=== PATIENT | female | born 1990 | race Caucasian/White ===

== ENCOUNTER 2017-03-31 11:12 | Emergency (ER) | payer OTHER ==
[~2017-03-31] VITALS: Ht 166.4 cm; Wt 79.5 kg
[~2017-03-31 11:12] MED LIST: DICY20TA33 PO; ONDA8TAB10 PO; OXYC1TAB24 PO
[2017-03-31 11:17] VITALS: BP 132/91; PULSE 94; RESP 15; O2SAT 100
[2017-03-31 13:21] VITALS: BP 120/83; PULSE 90; RESP 20; O2SAT 99
--- NOTE | 2017-03-31 13:35 | ED.REPORT ---
HPI-Abd Pain F Under 40 Date of Service March 31, 2017 ED Provider: Artur Razo PA-C Rose is otherwise healthy 27-year-old female presenting with a chief complaint of bilateral lower abdominal pain. Noted to be by urinalysis upon arrival to emergency department. Patient reports 3 days of sharp bilateral lower abdominal pain "in the area of my fallopian tubes, and a little bit less in the middle." Also complains of fatigue and loose stool. Denies fever, abdominal pain, vomiting, melena, hematochezia, vaginal bleeding/ discharge, hematuria, dysuria. History of lap band surgery, 2 vaginal deliveries. Admits history of IBS, benign liver tumor. Denies history of PID, ovarian cyst, ovarian torsion, Crohn's disease, ulcerative colitis. Nursing Notes Stated Complaint: LOWER ABDOMINAL PAIN/FATIGUE Chief Complaint: Female Abdominal Pain Nursing Notes Reviewed: Yes Allergies: Coded Allergies: TAPE (Verified Allergy, Unknown, 08/10/15) azithromycin (Verified Allergy, Unknown, 08/10/15) hydromorphone HCl (Verified Allergy, Unknown, 08/10/15) Scheduled PRN Dicyclomine (Bentyl) 20 Mg Tablet 20 MG PO QID PRN PRN For Pain Ondansetron ODT (Ondansetron ODT) 8 Mg Tab.rapdis 8 MG PO QID PRN PRN For Nausea oxyCODONE-Acetaminophen 5-325 mg (oxyCODONE-Acetaminophen 5-325 mg) 1 Each Tablet 1-2 TAB PO Q6H PRN PRN For Pain General Time Seen by MD: 13:18 Chief Complaint Abdominal pain Past Medical History Past Medical History Anxiety Possible IBS Past Surgical History Laproscopic surgery to rule-out endometriosis Colonoscopy 2011 Knee surgery Family History Grandmother at bedside and reports that she and patient's mother have similar symptoms Smoking History Former Smoker Social History Alcohol Use: Denies alcohol use Drug Use: Denies drug use Other Social History: Good social support Occupation lives by self with 7 and 3 year old, works at [employer] Ambulatory Status Independent Review of Systems Negative unless stated otherwise in history of present illness Physical Exam General: Well appearing, well developed, well nourished, no acute distress. Head: Atraumatic, normocephalic. Eyes: No scleral icterus or injection. No discharge. Vision grossly intact. ENT: Voice clear, hearing grossly intact. Respiratory: Regular rate and rhythm. Breath sounds present, clear to auscultation and equal bilaterally. No respiratory distress. No increased work of breathing, speaks in complete sentences. Cardiovascular: Regular rate and rhythm, without murmur, gallop or rub. No pedal edema. Gastrointestinal: Obese abdomen, moderately tender in bilateral lower quadrants and suprapubically, most pronounced in the left lower quadrant. Negative rebound. Bowel sounds normoactive. Skin: Warm and dry. Neurological: Grossly nonfocal. Psychological: Alert and oriented. Speech appropriate, linear and logical. Behavior appropriate. Initial Vital Signs Vital Signs (First) Date Time Temp Pulse Resp B/P Pulse Ox O2 Delivery O2 Flow Rate FiO2 03/31/17 11:17 36.6 94 15 132/91 100 Room Air Initial VS: Vital signs normal Interpretation & Diagnostics Lab Results Interpretation Result Diagram: 03/31/17 1410 03/31/17 1410 Test 03/31/17 11:28 03/31/17 14:10 Urine Color Yellow (YELLOW) Urine Appearance Turbid (CLEAR,HAZY) Urine pH 5.5 (5.0-8.0) Urine Specific [place] 1.025 (1.003-1.035) Urine Protein Negativemg/dL (NEG,TRACE) Urine Glucose (UA) Negativemg/dL (NEGATIVE) Urine Ketones 15mg/dL (NEGATIVE) Urine Occult Blood Negative (NEGATIVE) Urine Nitrite Negative (NEGATIVE) Urine Bilirubin Negative (NEGATIVE) Urine Urobilinogen Normalmg/dL (NORMAL) Urine Leukocyte Esterase Negative (NEGATIVE) Urine RBC 0-2/hpf (0-2) Urine WBC 0-5/hpf (0-5) Urine Epithelial Cells Few/hpf (NONE-MOD) Urine Crystals Amorphous urates (NONE Urine Bacteria None/hpf (NONE-FEW) Urine Hyaline Casts None/lpf (NONE) Urine Granular Casts None seen (NONE SEEN) Urine Waxy Casts None seen (NONE SEEN) Urine Red Blood Cell Casts None seen (NONE SEEN) Urine White Blood Cell Casts None seen (NONE SEEN) Urine Mucus None seen (None Seen) Urine Trichomonas None seen (NONE SEEN) Urine Yeast None (NONE SEEN) Urinalysis Comment None Urine Culture Reflexed Not indicated Hold Urine Received (Received) White Blood Count 9.8th/mm3 (3.8-10.1) Red Blood Count 4.63mil/mm3 (3.90-5.20) Hemoglobin 14.2g/dL (12.0-15.6) Hematocrit 39.0% (35.0-46.0) Mean Corpuscular Volume 84.2fL (81-100) Mean Corpuscular Hemoglobin 30.7pg (27.0-35.0) Mean Corpuscular Hemoglobin Concent 36.4% (32.0-37.0) Red Cell Distribution Width 12.7% (12.3-15.4) Platelet Count 335bil/L (150-400) Neutrophils (%) (Auto) 74.6% (40-74) Lymphocytes (%) (Auto) 19.2% (14-46) Monocytes (%) (Auto) 5.0% (4-12) Eosinophils (%) (Auto) 0.7% (0-5) Basophils (%) (Auto) 0.3% (0-3) Sodium Level 137mEq/L (134-144) Potassium Level 3.8mEq/L (3.5-5.2) Chloride Level 100mEq/L (97-108) Carbon Dioxide Level 20mmol/L (18-29) Blood Urea Nitrogen 10mg/dL (6-20) Creatinine 0.76mg/dL (0.57-1.00) Estimat Glomerular Filtration Rate 130mL/min (>59) Glucose Level 89mg/dL (60-99) Calcium Level 9.5mg/dL (8.5-10.1) Total Bilirubin 0.6mg/dL (0.0-1.2) Aspartate Amino Transf (AST/SGOT) 18U/L (0-50) Alanine Aminotransferase (ALT/SGPT) 27U/L (0-32) Alkaline Phosphatase 65U/L (25-150) Total Protein 7.5g/dL (6.4-8.4) Albumin 4.3g/dL (3.4-5.0) HCG Beta Subunit 3078mIU/mL Hold [place] Top Tube Received (Received) US Focused OB PROCEDURE: US OB<14 WKS+OB TRANSVAG INDICATIONS: , bilateral lower abdominal pain IMPRESSION: 1. Single early intrauterine gestation. Routine clinical and sonographic followup recommended. Small mat-gestational hemorrhage. 2. Increased right hepatic lobe focal nodular hyperplasia. Exam Performed by: Radiologist Re-Eval/Medical Decision Med Decision/Clinical Course Med Decision/Clinical Course: I discussed this case with Dr. Lucio Otherwise healthy 19-year-old female presents with bilateral lower abdominal pain. Denies vaginal bleeding/discharge, hematuria, dysuria, bowel changes. Physical examination reveals moderate lower abdominal tenderness, normal vital signs. See test is positive, CBC and CMP are normal, urinalysis is normal. Ultrasound reveals a single intrauterine , normal appearance of maternal organs. Patient reports a "benign liver tumor" which is noted on ultrasound. At this point I I am reassured regarding ectopic , PID, ovarian torsion, ovarian cyst. I discussed this case with Dr. Lucio and believe the patient is stable and safe to be discharged. Advise regarding over- the-counter analgesia, Provided OB follow-up referral, emergency return precautions. Patient verbalizes understanding of and consent to plan Discharge & Departure Primary Impression: Weeks of gestation: less than 8 weeks Qualified Code: Z3A.01 - Less than 8 weeks gestation of Disposition: Home Discharge Condition All VS Reviewed: Yes Condition: Stable Patient Instructions: (ED) Additional Instructions: Evaluation in the emergency department for abdominal pain involves history, physical examination ultrasound and blood tests. This indicates that you are , but is reassuring against an acute dangerous condition such as an ectopic or torsed ovary. I believe you are stable and safe to be discharged home. Pain is best managed with up to 1000 mg of acetaminophen (Tylenol) every 6 hours. You should avoid ibuprofen during the first and final trimesters of . I have given you a referral for an instructional design specialist. Please contact his office tomorrow to arrange follow-up. Return to the emergency department if any new or worsening symptoms including increasing pain, vaginal bleeding or discharge. Referrals: NOPCP (PCP) Lionel Mendoza MD EDSupervising Provider for APC: Donnell Lucio MD copies to: Lionel Mendoza MD, Seth PA-C March 31, 2017 13:35
[2017-03-31 14:23] LABS: BASOPHILS % (AUTO) 0.3 % (0-3); EOSINOPHILS % (AUTO) 0.7 % (0-5); Mean Corpuscular Hemoglobin 30.7 pg (27.0-35.0); Mean Corpuscular Volume 84.2 fL (81-100); NEUTROPHILS % (AUTO) 74.6 % (40-74); Platelet Count 335 bil/L (150-400)
[2017-03-31 14:46] LABS: APPEARANCE,URINE TURBID (CLEAR,HAZY); COLOR,URINE YELLOW (YELLOW); OCCULT BLOOD,URINE NEGATIVE (NEGATIVE); PH,URINE 5.5 (5.0-8.0); UROBILINOGEN,URINE NORMAL (NORMAL)
[2017-03-31 15:35] VITALS: BP 118/78; PULSE 76; RESP 20; O2SAT 99
--- NOTE | 2017-03-31 17:36 | DRSVH ---
PROCEDURE: US OB<14 WKS+OB TRANSVAG INDICATIONS: , bilateral lower abdominal pain TECHNIQUE: Real-time scanning was performed of the fetus and maternal pelvic organs, with image documentation. Endovaginal scanning was also performed to better visualize the fetus and maternal ovaries. COMPARISON: [facility], MR, ABD W&WO CON, 08/27/2016, 8:53. FINDINGS: Embryo: A single intrauterine gestation is present, with a mean gestational sac diameter of 6 mm, co rresponding to a 5 week 2 day gestation. A yolk sac is present. A small mat-gestational hemorrhage i s seen. Measurement variability in dating: +/- 4 weeks by LMP, +/- 7 days by mean sac diameter (use before 6 weeks gestation if crown-rump length not able to be measured), +/- 5 days by crown-rump length (6-12 weeks gestation). Maternal organs: Ovaries corpus luteal cyst within the right ovary. Left ovary within normal limits. Limited images through the kidneys demonstrate no hydronephrosis. 68 mm diameter right hepatic lob e mass is present, which is increased compared to 10.25.16, allowing for differences in modality. IMPRESSION: 1. Single early intrauterine gestation. Routine clinical and sonographic followup recommended. Small mat-gestational hemorrhage. 2. Increased right hepatic lobe focal nodular hyperplasia. Dictated by: Gloria Petersen M.D. on 03/31/2017 at 17:31 Approved by: Gloria Petersen M.D. on 03/31/2017 at 17:34
[2017-03-31 18:11] VITALS: BP 125/85; PULSE 96; RESP 16; O2SAT 100
== END 2017-03-31 18:11 | disposition home or self-care (01) ==
LOC: SED 11:12
DX: O26.891 Other specified pregnancy related conditions, first trimester (principal); R10.31 Right lower quadrant pain; R10.32 Left lower quadrant pain; R53.83 Other fatigue; R19.7 Diarrhea, unspecified; Z3A.01 Less than 8 weeks gestation of pregnancy; Z87.891 Personal history of nicotine dependence; Z88.1 Allergy status to other antibiotic agents; Z88.5 Allergy status to narcotic agent; Z91.048 Other nonmedicinal substance allergy status

== ENCOUNTER 2017-05-26 18:53 | Emergency (ER) | payer OTHER ==
[~2017-05-26] VITALS: Ht 165.1 cm; Wt 90.9 kg
[2017-05-26 18:57] VITALS: BP 155/99; PULSE 79; RESP 19; O2SAT 99
--- NOTE | 2017-05-26 20:24 | ED.REPORT ---
HPI-General Illness Date of Service May 26, 2017 ED Provider: Jose Alarcon MD Pt is a generally healthy 27 y/o female w/ a hx of anxiety presenting to the ED due to positive tests. The patient had an last month and subsequently had Nexplanon control placed. She was due to have her period around now but it hasn't come so she had 2 positive home tests today. She c/o associated mild abdominal pain. She denies vaginal bleeding, any other symptoms. Nursing Notes Stated Complaint: POSITIVE PREG TEST, ON CONTROL Chief Complaint: & Delivery Nursing Notes Reviewed: Yes Allergies: Coded Allergies: TAPE (Verified Allergy, Unknown, 05/26/17) azithromycin (Verified Allergy, Unknown, 05/26/17) hydromorphone HCl (Verified Allergy, Unknown, 05/26/17) Scheduled PRN Dicyclomine (Bentyl) 20 Mg Tablet 20 MG PO QID PRN PRN For Pain Ondansetron ODT (Ondansetron ODT) 8 Mg Tab.rapdis 8 MG PO QID PRN PRN For Nausea oxyCODONE-Acetaminophen 5-325 mg (oxyCODONE-Acetaminophen 5-325 mg) 1 Each Tablet 1-2 TAB PO Q6H PRN PRN For Pain General Time Seen by MD: 20:22 Chief Complaint Other (preg) Hx Obtained From: Patient Arrived By: Walk-in Sudden in Onset?: No Onset Occurred: 5 - 8 hours ago Symptom Duration: Since onset Location: : Abdomen Quality: Aching Severity: Current: Mild Severity: Maximum: Mild Similar Sx Previous: No Past Medical History Past Medical History Anxiety Possible IBS Past Surgical History Laproscopic surgery to rule-out endometriosis Colonoscopy 2011 Knee surgery Family History Grandmother at bedside and reports that she and patient's mother have similar symptoms Smoking History Former Smoker Social History Alcohol Use: Denies alcohol use Drug Use: Denies drug use Other Social History: Good social support Occupation lives by self with 7 and 3 year old, works at [employer] Ambulatory Status Independent Review of Systems Full Review of Systems Constitutional: Denies: Chills, Fever GI: Reports: Abdominal pain Female: Reports: , Denies: Vaginal bleeding - abnl Complete sys rev & neg: except as marked. Physical Exam Vital Signs Vital Signs Date Time Temp Pulse Resp B/P Pulse Ox O2 Delivery O2 Flow Rate FiO2 7/24/17 18:57 36.6 79 19 155/99 99 Room Air Initial VS: Reviewed, Vital signs normal Head / Eyes: Atraumatic, Normocephalic, PERRL ENT: Mucous membranes moist, Conjunctiva normal, No scleral icterus Neck: Supple, Full range of motion Respiratory: Breath sounds normal, Clear to auscultation, No respiratory distress Cardiovascular: Regular rate & rhythm, Heart sounds normal, Intact distal pulses Abdomen / GI: Soft, Non-tender, No distention Extremities: Vascular intact, Neuro intact, No swelling Skin: Warm, Dry, No cyanosis Neurologic: Alert, Oriented, Nonfocal Psychiatric: Mood/affect normal, Behavior normal, Normal thought content General/Constitutional: Awake, Alert, No acute distress, Well appearing, Cooperative, Not toxic appearing Interpretation & Diagnostics Lab Results Interpretation Test 05/26/17 20:58 Hold Urine Received (Received) Re-Eval/Medical Decision Med Decision/Clinical Course 27 year old female presenting out of concern is that she is . +preg test at home. Negative test here. No vag bleeding, abd pain, discharge. Recommend follow up PMD 2-3 days. Time of Eval: 20:36 Re-Evaluation/Progress Note: Discussed negative preg test. Counseled Regarding: Diagnosis, Lab results, Need for follow-up, When/why to return to ED Discharge & Departure Primary Impression: Not currently Disposition: Home Discharge Condition All VS Reviewed: Yes Condition: Stable Additional Instructions: Your test here was negative. Follow-up with your primary care doctor in 2-3 days for another check and a general recheck. Referrals: [facility] Scribe Attestation Portions of this note were transcribed by Edu Ward. I, Dr. Alarcon personally performed the history, physical exam and medical decision-making; I reviewed and confirmed the accuracy of the information in the transcribed note. Signed by Steve Patel, 05/26/17 - 2044 Jose Alarcon MD May 26, 2017 20:24 EDU WARD May 26, 2017 20:37
== END 2017-05-26 20:53 | disposition home or self-care (01) ==
LOC: SED 18:53
DX: Z32.02 Encounter for pregnancy test, result negative (principal); R10.9 Unspecified abdominal pain; F41.9 Anxiety disorder, unspecified; Z87.891 Personal history of nicotine dependence; Z88.1 Allergy status to other antibiotic agents; Z88.5 Allergy status to narcotic agent

== ENCOUNTER 2017-06-25 17:36 | Emergency (ER) | payer OTHER ==
[~2017-06-25] VITALS: Ht 165.1 cm; Wt 90.9 kg
[2017-06-25 17:40] VITALS: BP 127/87; PULSE 76; RESP 18; O2SAT 100
--- NOTE | 2017-06-25 18:54 | ED.REPORT ---
HPI-Abd Pain F Under 40 Date of Service Jun 25, 2017 ED Provider: Vamsi Royal DO The pt is a 27 y/o female with a hx of anxiety who presents to the ED complaining of periumbilical pain for the last 2 weeks.She also reports heaviness in the chest and nausea. She associates her sx with anxiety. 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 After the attack, she experiences abdominal pain and nausea. She also has mild abdominal pain after eating. The pt has taken anxiety medications in the past but is not taking any currently. The pt has had chest discomfort with anxiety in the past but the abdominal pain is new. She denies lower extremity edema and . In the ED, the pt is asymptomatic. Nursing Notes Stated Complaint: HEAVY CHEST, NAUSEA, ABDOMINAL PAIN Chief Complaint: Female Abdominal Pain Nursing Notes Reviewed: Yes Allergies: Coded Allergies: TAPE (Verified Allergy, Unknown, 06/25/17) azithromycin (Verified Allergy, Unknown, 06/25/17) hydromorphone HCl (Verified Allergy, Unknown, 06/25/17) Scheduled Famotidine (Pepcid) 40 Mg Tablet 40 MG PO DAILY Scheduled PRN Dicyclomine (Bentyl) 20 Mg Tablet 20 MG PO QID PRN PRN For Pain Ondansetron ODT (Ondansetron ODT) 8 Mg Tab.rapdis 8 MG PO QID PRN PRN For Nausea oxyCODONE-Acetaminophen 5-325 mg (oxyCODONE-Acetaminophen 5-325 mg) 1 Each Tablet 1-2 TAB PO Q6H PRN PRN For Pain General Time Seen by MD: 18:51 Chief Complaint Abdominal pain Hx Obtained From: Patient Arrived By: Walk-in Sudden in Onset?: Yes Onset Occurred: More than a week ago... (2 weeks) Symptom Duration: Intermittent Location: : Periumbilical Quality: Painful Radiation: : Does not radiate Severity: Current: No pain currently Severity: Maximum: Moderate Recent Healthcare: No recent doctor visit Past Medical History Past Medical History Anxiety Possible IBS Past Surgical History Laproscopic surgery to rule-out endometriosis Colonoscopy 2011 Knee surgery Family History Grandmother at bedside and reports that she and patient's mother have similar symptoms Smoking History Former Smoker Social History Alcohol Use: Denies alcohol use Drug Use: Denies drug use Other Social History: Good social support Occupation lives by self with 7 and 3 year old, works at [employer] Ambulatory Status Independent Review of Systems Cardiovascular: Reports: Chest pain, Denies: Edema GI: Reports: Abdominal pain, Nausea Female: Denies: Complete sys rev & neg: except as marked. Psychiatric: Reports: Anxiety Physical Exam Initial Vital Signs Vital Signs (First) Date Time Temp Pulse Resp B/P Pulse Ox O2 Delivery O2 Flow Rate FiO2 06/25/17 17:40 36.7 76 18 127/87 100 Room Air Initial VS: Reviewed Head / Eyes: Atraumatic, Normocephalic Neck: Supple, Non-tender, Full range of motion Extremities: Vascular intact, Neuro intact, No swelling, No tenderness Skin: Warm, Dry, No cyanosis Neurologic: Alert, Oriented, Nonfocal General/Constitutional: Awake, Alert, No acute distress, Well appearing, Cooperative Respiratory / Chest: Atraumatic, Breath sounds NL, Breath sounds = bilat, No respiratory distress, No rales, No rhonchi, No wheezing, No retractions Cardiovascular: Heart rate NL, Regular rhythm, Heart sounds NL, No gallop, No murmurs, No rubs Abdomen: Atraumatic, Soft, Non-tender, No guarding, No rebound Back: Atraumatic, Full range of motion, Painless range of motion Interpretation & Diagnostics Lab Results Interpretation Result Diagram: 06/25/17 1840 06/25/17 1840 Test 06/25/17 18:40 06/25/17 18:54 White Blood Count 9.1th/mm3 (3.8-10.1) Red Blood Count 5.08mil/mm3 (3.90-5.20) Hemoglobin 15.2g/dL (12.0-15.6) Hematocrit 41.8% (35.0-46.0) Mean Corpuscular Volume 82.3fL (81-100) Mean Corpuscular Hemoglobin 29.9pg (27.0-35.0) Mean Corpuscular Hemoglobin Concent 36.4% (32.0-37.0) Red Cell Distribution Width 12.3% (12.3-15.4) Platelet Count 343bil/L (150-400) Neutrophils (%) (Auto) 61.0% (40-74) Lymphocytes (%) (Auto) 31.3% (14-46) Monocytes (%) (Auto) 5.3% (4-12) Eosinophils (%) (Auto) 1.9% (0-5) Basophils (%) (Auto) 0.4% (0-3) Sodium Level 138mEq/L (134-144) Potassium Level 3.7mEq/L (3.5-5.2) Chloride Level 102mEq/L (97-108) Carbon Dioxide Level 21mmol/L (18-29) Blood Urea Nitrogen 10mg/dL (6-20) Creatinine 0.82mg/dL (0.57-1.00) Estimat Glomerular Filtration Rate 119mL/min (>59) Glucose Level 97mg/dL (60-99) Calcium Level 9.3mg/dL (8.5-10.1) Magnesium Level 2.0mg/dL (1.6-2.6) Total Bilirubin 0.4mg/dL (0.0-1.2) Aspartate Amino Transf (AST/SGOT) 17U/L (0-50) Alanine Aminotransferase (ALT/SGPT) 31U/L (0-32) Alkaline Phosphatase 64U/L (25-150) Total Protein 7.7g/dL (6.4-8.4) Albumin 4.6g/dL (3.4-5.0) Lipase 56U/L (13-60) Hold [place] Top Tube Received (Received) ECG Interpretation ECG Interpretation: Normal sinus rhythm. Rate 62 Atrial premature complex Time: 19:39 Interpreted by: ED physician Re-Eval/Medical Decision Med Decision/Clinical Course Med Decision/Clinical Course: Overall findings are nonspecific, abdominal exam is reassuring and no indication for advanced imaging. 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 She is given a single Ativan and Zofran in the ER, the name of an outpatient provider to follow-up with. Return and follow-up precautions given Source of Hx: Old records Re-Evaluation/Progress : Time of Eval: 19:55 Re-Evaluation/Progress Note: Rechecked pt. Discussed lab results, diagnosis and plan to discharge. Pt understands and agrees with the plan. F/U instruction and RTER warning given. All questions addressed. Counseled Regarding: Diagnosis, Lab results, Need for follow-up, When/why to return to ED Discharge & Departure Primary Impression: Pain, abdominal, nonspecific Disposition: Home Discharge Condition All VS Reviewed: Yes Condition: Stable Additional Instructions: Your workup in the ER is reassuring. Begin taking Pepcid to see if this helps with your upset stomach. Follow-up with a primary care doctor so that you can further discuss your ongoing anxiety. Return to the ER as needed for concerning or worsening symptoms Referrals: Shine Walter MD Attestation Portions of this note were transcribed by Denise Ghosh. I,, personally performed the history,physical exam and medical decision-making;I reviewed and confirmed the accuracy of the information in the transcribed note. Signed by Steve Mane. 06/25/17 copies to: Shine Walter MD, Timothy S DO Jun 25, 2017 18:54 Denise Ghosh Jun 25, 2017 19:21
[2017-06-25 19:13] LABS: BASOPHILS % (AUTO) 0.4 % (0-3); EOSINOPHILS % (AUTO) 1.9 % (0-5); MONOCYTES % (AUTO) 5.3 % (4-12); Mean Corpuscular Hemoglobin 29.9 pg (27.0-35.0); Mean Corpuscular Volume 82.3 fL (81-100); Platelet Count 343 bil/L (150-400)
[2017-06-25] MEDS ORDERED: LORazepam 1 mg Tablet PO ONE (19:25)
[2017-06-25] MEDS ORDERED: FAMO40TA72 PO (20:00)
[2017-06-25 20:11] VITALS: BP 113/81; PULSE 60; RESP 16; O2SAT 98
== END 2017-06-25 20:12 | disposition home or self-care (01) ==
LOC: SED 17:36
DX: R10.33 Periumbilical pain (principal); R11.0 Nausea; R07.89 Other chest pain; F41.9 Anxiety disorder, unspecified; Z87.891 Personal history of nicotine dependence; Z88.1 Allergy status to other antibiotic agents; Z88.5 Allergy status to narcotic agent; Z91.048 Other nonmedicinal substance allergy status

== ENCOUNTER 2017-07-14 14:15 | Emergency (ER) | payer OTHER ==
[~2017-07-14] VITALS: Ht 165.1 cm; Wt 90.9 kg
[2017-07-14 14:15] VITALS: BP 138/96; PULSE 67; RESP 16; O2SAT 100
[~2017-07-14 14:15] MED LIST changes: +FAMO40TA72 PO
--- NOTE | 2017-07-14 16:32 | DRSVH ---
PROCEDURE: X-RAY LEFT WRIST COMPLETE, MINIMUM THREE VIEWS ([id number]) INDICATIONS: PAIN TECHNIQUE: 4 views of the wrist were acquired. COMPARISON: None. FINDINGS: Bones: No fractures or dislocations. No suspicious bony lesions. Scaphoid view: No fracture Soft tissues: No suspicious soft tissue calcifications. IMPRESSION: No fracture Dictated by: Abner Riggs M.D. on 07/14/2017 at 15:30 Approved by: Abner Riggs M.D. on 07/14/2017 at 15:31
--- NOTE | 2017-07-14 17:01 | ED.REPORT ---
HPI-Extremity Problem Upper Date of Service Jul 14, 2017 ED Provider: Jose Alarcon MD Patient is a 27 year old female who presents to the ED complaining of left wrist pain onset yesterday. The patient reports that she was trying to lift a heavy speaker when her wrist started cramping and started hurting. She denies numbness or other symptoms at this time. Patient reports that the pain is exacerbated by movement. Nursing Notes Stated Complaint: WRIST IS HURTING Chief Complaint: Extremity Trauma Nursing Notes Reviewed: Yes Allergies: Coded Allergies: TAPE (Verified Allergy, Unknown, 07/14/17) azithromycin (Verified Allergy, Unknown, 07/14/17) hydromorphone HCl (Verified Allergy, Unknown, 07/14/17) Scheduled Famotidine (Pepcid) 40 Mg Tablet 40 MG PO DAILY Scheduled PRN Dicyclomine (Bentyl) 20 Mg Tablet 20 MG PO QID PRN PRN For Pain Ibuprofen (Ibuprofen) 800 Mg Tablet 800 MG PO TID PRN PRN For Pain Ondansetron ODT (Ondansetron ODT) 8 Mg Tab.rapdis 8 MG PO QID PRN PRN For Nausea oxyCODONE-Acetaminophen 5-325 mg (oxyCODONE-Acetaminophen 5-325 mg) 1 Each Tablet 1-2 TAB PO Q6H PRN PRN For Pain General Time Seen by MD: 17:01 Chief Complaint Wrist injury left Hx Obtained From: Patient Arrived By: Walk-in Onset Occurred: Yesterday Symptom Duration: Since onset Location: : Wrist left Quality: Painful Severity: Current: Moderate Exacerbated by: Movement Similar Sx Previous: No Past Medical History Past Medical History Anxiety Possible IBS Past Surgical History Laproscopic surgery to rule-out endometriosis Colonoscopy 2011 Knee surgery Family History Grandmother at bedside and reports that she and patient's mother have similar symptoms Smoking History Former Smoker Social History Alcohol Use: Denies alcohol use Drug Use: Denies drug use Other Social History: Good social support Occupation lives by self with 7 and 3 year old, works at [employer] Ambulatory Status Independent Review of Systems Constitutional: Denies: Chills, Fever Musculoskeletal: Reports: Extremity pain Skin: Denies Itching, Denies Rash Neurologic: Denies: Numbness, Weakness Complete sys rev & neg: except as marked. Respiratory: Denies: Non-productive cough, Shortness of breath Physical Exam Initial Vital Signs Vital Signs (First) Date Time Temp Pulse Resp B/P Pulse Ox O2 Delivery O2 Flow Rate FiO2 07/14/17 14:15 36.8 67 16 138/96 100 Room Air Initial VS: Reviewed General/Constitutional: Awake, Alert Respiratory / Chest: Atraumatic, No respiratory distress Upper Extremity / MS: Atraumatic, Full range of motion Wrist / Hand: Neurologic intact, Vascular intact diffuse left wrist tenderness Skin: Atraumatic, Color NL, No rash, Warm, Dry Neurologic: Oriented X3, Speech NL Head / Eyes: Atraumatic, Normocephalic, PERRL, EOMI Psychiatric: Affect NL, Mood NL Interpretation & Diagnostics X-Ray Interpretation Xray Interpretation: IMPRESSION: No fracture Dictated by: Abner Riggs M.D. on 07/14/2017 at 15:30 Approved by: Abner Riggs M.D. on 07/14/2017 at 15:31 X-Ray Ordered: Wrist left Interpretation / Wet Read by: Interpret - Radiologist Re-Eval/Medical Decision Med Decision/Clinical Course 27-year-old female with diffuse left wrist pain since lifting a heavy object. X-rays normal. Neurovascularly intact. Likely muscle strain. Rice. Precautions given. Follow up primary doctor. Re-Evaluation/Progress : Time of Eval: 17:20 Re-Evaluation/Progress Note: Discussed results and plan for discharge. Patient understands and agrees to plan. All questiosns were addressed. Counseled Regarding: Diagnosis, Lab results, Need for follow-up, When/why to return to ED Discharge & Departure Impression: Primary Impression: Wrist strain Encounter type: initial encounter Laterality: left Qualified Code: S66.912A - Strain of unspecified muscle, fascia and tendon at wrist and hand level, left hand, initial encounter Disposition: Home Discharge Condition All VS Reviewed: Yes Condition: Stable Additional Instructions: Your X-ray was normal and reassuring. There was no evidence of fracture in your wrist. You can take ibuprofen as directed for pain. You can also try icing it for 20 minutes, 3x a day. Follow up with your primary care physician next week if symptoms persist. Return to the emergency department if you develop any new or concerning symptoms. Referrals: [facility] Scribe Attestation Portions of this note were transcribed by Aminah Humphrey. I, Dr. Alarcon personally performed the history, physical exam and medical decision-making; I reviewed and confirmed the accuracy of the information in the transcribed note. Signed by: Steve Aguilar, 07/14/17. Jose Alarcon MD Jul 14, 2017 17:01 Mary Lou Humphrey Jul 14, 2017 17:13
[2017-07-14] MEDS ORDERED: IBUP800T28 PO (17:25)
== END 2017-07-14 17:40 | disposition home or self-care (01) ==
LOC: SED 14:15
DX: S66.912A Strain of unspecified muscle, fascia and tendon at wrist and hand level, left hand, initial encounter (principal); X50.0XXA Overexertion from strenuous movement or load, initial encounter; Y93.89 Activity, other specified; Y92.009 Unspecified place in unspecified non-institutional (private) residence as the place of occurrence of the external cause; Y99.8 Other external cause status; Z79.891 Long term (current) use of opiate analgesic; Z88.1 Allergy status to other antibiotic agents; Z88.5 Allergy status to narcotic agent